=== PATIENT | female | born 2000 | race American Indian/Alaskan Native ===

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

== ENCOUNTER 2018-09-01 21:11 | Emergency (ER) | payer MEDICAID | END 2018-09-01 21:18 | disposition left against medical advice (07) | LOC: ED 21:11 ==